=== PATIENT | female | born 2000 | race Caucasian/White ===

== ENCOUNTER → 2021-06-09 21:20 | Observation (INO) ==
[2021-06-09 21:03] LABS: Bacteria,Urine Few per hpf (None-Few); Bilirubin,Urine Negative (Negative); Blood,Urine Negative (Negative); Clarity,Urine Turbid (Clear); Color,Urine Yellow (Yellow); Glucose,Urine (UA) 50 mg/dL (Normal); Ketones,Urine Trace mg/dL (Negative); Leukocyte Esterase,Urine Negative (Negative); Mucus,Urine Many per lpf (None-Few); Nitrite,Urine Negative (Negative); Protein,Urine 70 mg/dL (Neg-Trace); Specific Gravity,Urine > 1.030 (1.010-1.025); Squamous Epithelial Cell,Urine Many per hpf (None-Few); Urobilinogen,Urine Normal (Normal)
== END | disposition home or self-care (01) ==
LOC: 1NENULAB
PROVIDERS: ADMIT Advanced Practice Midwife; ATTEND Advanced Practice Midwife

== ENCOUNTER 2021-06-12 11:43 | Observation (INO) | END 2021-06-12 15:00 | disposition home or self-care (01) | LOC: 1NENULAB | PROVIDERS: ADMIT Registered Nurse; ATTEND Registered Nurse ==

== ENCOUNTER 2021-06-13 22:43 | Inpatient (IN) ==
[2021-06-13 22:10] LABS: Basophils % 0.4 %; Eosinophils % 0.4 %; Hematocrit 36.3 % (35.3-44.9); Hemoglobin 11.5 g/dL (11.5-15.4); Immature Granulocytes % 0.8 % (0-4); Lymphocytes # 1.9 K/mcL (0.6-4.6); Lymphocytes % 19.5 %; Mean Corpuscular HGB Conc 31.7 g/dL (31.6-35.5); Mean Corpuscular Hemoglobin 24.3 pg (28.0-33.3); Mean Corpuscular Volume 76.7 fL (83.0-100.0); Monocytes # 0.5 K/mcL (0.0-1.3); Monocytes % 5.3 %; Platelet Count 372 K/mcL (140-400); Red Blood Count 4.73 M/mcL (3.82-4.97); Red Cell Distribution Width 14.4 % (11.5-14.5); Segmented Neutrophils % 73.6 %; White Blood Count 9.5 K/mcL (4.3-11.1)
[2021-06-13 22:16] LABS: Protein/Creatinine Ratio,Urine 0.82 mg/mg (0.00-0.20)
[2021-06-13 22:28] LABS: Alanine Aminotransferase 10 Units/L (7-52); Aspartate Amino Transferase 18 Units/L (13-39); BUN/Creatinine Ratio 24 (6-26); Blood Urea Nitrogen 17 mg/dL (6-20); Lactate Dehydrogenase 107 Units/L (140-271); Uric Acid 4.4 mg/dL (2.3-7.6); eGFR For African Americans > 60 (> 60); eGFR For Non-African Americans > 60 (> 60)
[~2021-06-13 22:43] MED LIST: EPHEDrine 50 MG/ML VIAL IVP PRN; Famotidine 20 MG/2 ML VIAL IVP PRN; Metoclopramide 10 MG/2 ML VIAL IVP PRN; Naloxone 0.4 MG/ML INJ IVP PRN; Ondansetron 4 MG/2 ML VIAL IVP PRN
[2021-06-13] MEDS: Ringers Solution, Lactated 1,000 ML IVC SCH (23:01)
[2021-06-13] MEDS: Oxytocin 30 UNIT/503 ML BAG IVC SCH (23:02)
[2021-06-13 23:13] LABS: Amphetamine Screen,Urine Negative ng/mL (Cutoff=1000); Barbiturate Screen,Urine Negative ng/mL (Cutoff=200); Benzodiazepines Screen,Urine Negative ng/mL (Cutoff=200); Cannabinoid Screen,Urine Negative ng/mL (Cutoff = 50); Cocaine Screen,Urine Negative ng/mL (Cutoff= 300); Opiate Screen,Urine Negative ng/mL (Cutoff=300); Phencyclidine Screen,Urine Negative ng/mL (Cutoff=25)
[2021-06-14] MEDS: *HR* Nalbuphine 10 MG/ML AMPUL IV PRN ×2 (03:25→05:59)
[2021-06-14] MEDS: Ringers Solution, Lactated 1,000 ML IVC SCH ×2 (07:00→12:13)
[2021-06-14] MEDS: Epidural Premix (fent/bupiv) 110 ML EP SCH ×3 (07:26→15:31)
[2021-06-14] MEDS ORDERED: Famotidine 20 MG/2 ML VIAL IVP ONE (11:30)
[2021-06-14] MEDS: Oxytocin 30 UNIT/503 ML BAG IVC SCH (13:49)
[2021-06-14] MEDS ORDERED: *HR* Labetalol 20 MG/4 ML SYRINGE IVP PRN (15:44)
[2021-06-14] MEDS ORDERED: Oxytocin 30 UNIT/503 ML BAG IVC SCH (20:22)
[2021-06-14] MEDS ORDERED: Measles/Mumps/Rubella Vacc 0.5 ML VIAL SQ PRN (20:22)
[2021-06-14] MEDS ORDERED: Ondansetron ODT 4 MG TAB.RAPDIS SL PRN (20:22)
[2021-06-14] MEDS ORDERED: Lanolin 7 G OINT...G. TP PRN (20:22)
[2021-06-14] MEDS ORDERED: OXYTOCIN/RINGERS LACTATE 10 UNIT/166.6 ML BAG IVC ONE (20:22)
[2021-06-14] MEDS ORDERED: Benzocaine/Menthol 56 GM AEROSOL SPRAY TP PRN (20:22)
[2021-06-14] MEDS ORDERED: Rho Immune Globulin 1,500 UNIT SYRINGE IM PRN (20:22)
[2021-06-14] MEDS: Acetaminophen 325 MG TABLET PO SCH (21:24)
[2021-06-14] MEDS: Ibuprofen 600 MG TABLET PO SCH (21:24)
[2021-06-15] MEDS: Ibuprofen 600 MG TABLET PO SCH ×2 (03:57→10:25)
[2021-06-15] MEDS ORDERED: Prenatal Vit/FA 1 EACH TABLET PO SCH (09:00)
[2021-06-15] MEDS: Acetaminophen 325 MG TABLET PO SCH (10:25)
[2021-06-15 17:11] VITALS: BP 130/77; PULSE 110; TEMP 98.2; O2SAT 100
== END 2021-06-15 18:21 | disposition home or self-care (01) | DRG 560 ==
LOC: 1NENULAB → 1NENUOBS 06-14 20:20
PROVIDERS: ADMIT Advanced Practice Midwife; ATTEND Advanced Practice Midwife